=== PATIENT | female | born 1970 | race African-American/Black ===

== ENCOUNTER 2020-12-12 09:31 | Outpatient (CLI) | payer MEDICARE | END 2020-12-12 09:32 | disposition home or self-care (01) | LOC: CSHWCC 09:31 | PROVIDERS: ATTEND Nurse Practitioner Family | DX: E11.621 Type 2 diabetes mellitus with foot ulcer (principal); L97.515 Non-pressure chronic ulcer of other part of right foot with muscle involvement without evidence of necrosis; E11.40 Type 2 diabetes mellitus with diabetic neuropathy, unspecified; E11.65 Type 2 diabetes mellitus with hyperglycemia; I12.9 Hypertensive chronic kidney disease with stage 1 through stage 4 chronic kidney disease, or unspecified chronic kidney disease; E11.22 Type 2 diabetes mellitus with diabetic chronic kidney disease; N18.4 Chronic kidney disease, stage 4 (severe); G89.11 Acute pain due to trauma | CPT/HCPCS: 11042; 97139; G0463; 99212 ==

== ENCOUNTER 2020-12-26 11:23 | Outpatient (CLI) | payer MEDICARE | END 2020-12-26 11:24 | disposition home or self-care (01) | LOC: CSHWCC 11:23 | PROVIDERS: ATTEND Nurse Practitioner Family | DX: E11.621 Type 2 diabetes mellitus with foot ulcer (principal); L97.515 Non-pressure chronic ulcer of other part of right foot with muscle involvement without evidence of necrosis; E11.22 Type 2 diabetes mellitus with diabetic chronic kidney disease; I12.9 Hypertensive chronic kidney disease with stage 1 through stage 4 chronic kidney disease, or unspecified chronic kidney disease; N18.4 Chronic kidney disease, stage 4 (severe); E11.40 Type 2 diabetes mellitus with diabetic neuropathy, unspecified; E11.65 Type 2 diabetes mellitus with hyperglycemia; G89.11 Acute pain due to trauma; M86.671 Other chronic osteomyelitis, right ankle and foot ==